=== PATIENT | male | born 1960 | race Hispanic/Latino ===

== ENCOUNTER 2017-12-17 15:20 | Emergency (ER) | payer BC ==
[~2017-12-17] VITALS: Ht 177.8 cm; Wt 104.3 kg
[2017-12-17] MEDS ORDERED: HYDROCODONE/APAP 10MG-325MG TAB PO ONE (15:30)
--- NOTE | 2017-12-17 16:18 | Diagnostic Imaging Report ---
Exam: Left ankle 3 views and tibia 2 views History: Pain, evaluate for fracture Comparison: None. Findings: No fracture or malalignment. Joint spaces preserved. No abnormal soft tissue calcification or soft tissue defect. Impression: No acute osseous abnormality Signed by: Dr. Max Rangel M.D. on 12/17/2017 4:14 PM
--- NOTE | 2017-12-17 16:32 | Diagnostic Imaging Report ---
Exam: Pain, evaluate for fracture History: Pain Comparison: None. Findings: No fracture or malalignment. Distal radioulnar joint arthrosis. No abnormal soft tissue calcification or soft tissue defect. Radiopaque density in the dorsal soft tissues. Impression: No acute osseous abnormality Signed by: Dr. Max Rangel M.D. on 12/17/2017 4:29 PM
--- NOTE | 2017-12-17 16:33 | Diagnostic Imaging Report ---
Exam: Left foot 3 views History: Pain Comparison: None. Findings: No fracture or malalignment. Joint spaces preserved. Calcaneal despite. Impression: No acute osseous abnormality Signed by: Dr. Max Rangel M.D. on 12/17/2017 4:29 PM
== END 2017-12-17 17:31 | disposition home or self-care (01) ==
LOC: ER 15:27
DX: M66.872 Spontaneous rupture of other tendons, left ankle and foot (principal); S93.492A Sprain of other ligament of left ankle, initial encounter; M79.642 Pain in left hand; X50.1XXA Overexertion from prolonged static or awkward postures, initial encounter; Y92.008 Other place in unspecified non-institutional (private) residence as the place of occurrence of the external cause
CPT/HCPCS: 99284